=== PATIENT | male | born 1945 | race Caucasian/White ===

== ENCOUNTER 2017-06-10 18:27 | Emergency (ER) | payer OTHER ==
[2017-06-10 18:31] VITALS: BMI 27.6
[2017-06-10] MEDS ORDERED: ASPIRIN 81 MG CHEWTAB PO ONE (18:38)
[2017-06-10] MEDS ORDERED: ASPIRIN 81 MG CHEWTAB ONE (18:39)
[2017-06-10] MEDS ORDERED: NITROSTAT SL ONE ×2 (18:40→18:58)
--- NOTE | 2017-06-10 18:49 | DR.CP ---
HPI - Time Seen Time seen: 18:46 - PCP [facility] - Complaint Chief Complaint Doctor Comments: Patient is complaining of tightness in his chest for the past two weeks getting worst tonight with SOB and problems breathing. States he goes to the [facility] and they put stents in his heart years ago but he does not know how long ago it was. He denies cold or cough, fever or chills or recent trauma. States he was having chest pain and the machine said his blood pressure was really elevated at home and he decided to come to the emergency room. He has not had an aspirin or nitroglycerin today. Chief Complaint:: PT C/O CHEST TIGHTNESS THAT STARTED 2 WEEKS AGO AND ITS WORSE TODAY ".. Self Treatment fo Chief Complaint: BP MEDS AT 600 AND GOODY PM - Reviewed Nurses Notes Review: Yes - Source History Provided: Patient - Mode of Arrival Mode of Arrival: Ambulatory - Timing Onset of Chief Complaint: 05/30/17 Came on: Gradually Pain: Present Now - Duration Duration: Intermittent How lon Duration: Weeks - Location Location of Chest Pain: Chest Chest Pain Radiation Location: None - Context Onset: At rest Cardiac Risk Factors: HTN PE Risk Factors: None History of: Similar pain in the past, Angioplasty Prehospital Care: None - Quality Quality: Squeezing, Crushing - Severity Severity: Moderate - Modifying Factors Worsens: Nothing, Exertion, Coughing Impoves: Nothing, NTG - Associated Signs and Symptoms Associated Signs and Symptoms: Shortness of Breath PMH - PMH Past Medical History: Yes Past Medical History: Coronary Artery Disease, Diabetes, Dyslipidemia, Hypertension Past Surgical History: Yes Surgical History: Angioplasty/Stents, Cholecystectomy, Other - Family History History of Family Medical Conditions: Yes Family Medical History: Diabetes Mellitus, Cancer, [place], Hypertension - Social History Does patient currently use any type of tobacco product: No Have you used tobacco products in the last 12 months: No Type of Tobacco Use: None How many years tobacco product used: 40 Does any household member use tobacco: No Alcohol Use: None Do you use any recreational Drugs:: No Lives With: Family Lives Where: Home - infectious screening In the last 2 months have you had wt loss of >10#?: NO Have you had fever, night sweats or hemotysis?: No Have you traveled outside the country in the last 6 months?: No Isolation: Standard ROS - Review of Systems Constitutional: No Symptoms Reported, Weakness, Loss of Appetite Eyes: No Symptoms Reported ENTM: No Symptoms Reported Respiratoy: No Symptoms Reported, Short of Breath Cardiovascular: Chest Pain. negative: No Symptoms Reported, See HPI, Edema, Palpitations, Syncope, Cyanosis, Skin Mottling, Other Gastrointestinal/Abdominal: No Symptoms Reported. negative: See HPI, Abdominal Pain, Constipation, Diarrhea, Nausea, Vomiting, Food Intolerance, Other Genitourinary: No Symptoms Reported Neurological: No Symptoms Reported Musculoskeletal: No Symptoms Reported Integumentary: No Symptoms Reported Hematologic/Lymphatic: No Symptoms Reported Endocrine: No Symptoms Reported Psychiatric: No Symptoms Reported PE - Vitals Vitals: Pulse Rate [Apical] 58 Pulse Rate 79 Respiratory Rate 20 Blood Pressure [Right Arm] 182/79 Blood Pressure 222/93 O2 Sat by Pulse Oximetry 95 Course - Reevaluation 1st: Improved - Education/Counseling Education/Counseling: Patient, Family Educated On: Treatment, Diagnosis, Prognosis, Needs for Follow Up (Patient states he is not hurting or having any chest pain and is ready to go home) ROR - Labs Reviewed Laboratory Results Reviewed?: Yes (all labs and x-ray results reviewed and discussed with patient) Result Diagrams: 06/10/17 18:45 06/10/17 18:45 Laboratory: WBC 8.5 X10^3/uL (3.6-10.0) 06/10/17 18:45 RBC 4.49 X10^6/uL (4.7-6.0) L 06/10/17 18:45 Hgb 13.0 g/dL (13.5-18.0) L 06/10/17 18:45 Hct 38.3 % (42.0-54.0) L 06/10/17 18:45 MCV 85.3 fL (80.0-100.0) 06/10/17 18:45 MCH 28.9 pg (27.0-34.0) 06/10/17 18:45 MCHC 33.9 g/dL (33.0-35.0) 06/10/17 18:45 RDW 14.8 % (11.6-16.5) 06/10/17 18:45 Plt Count 101 X10^3/uL (150.0-450.0) L 06/10/17 18:45 Plt Count Comment Decreased (ADEQUATE) 06/10/17 18:45 MPV 12.1 fL (7.4-11.0) H 06/10/17 18:45 Neut % 71.4 % (42.0-75.0) 06/10/17 18:45 Lymph % 20.0 % (21.0-51.0) L 06/10/17 18:45 [place] % 5.4 % (0.0-13.0) 06/10/17 18:45 Eos % 2.2 % (0.9-2.9) 06/10/17 18:45 Baso % 1.0 % (0.2-1.0) 06/10/17 18:45 Neut # 6.0 x10^3/uL (2.2-4.8) H 06/10/17 18:45 Lymph # 1.7 X10^3/uL (1.3-2.9) 06/10/17 18:45 [place] # 0.5 x10^3/uL (0.3-0.8) 06/10/17 18:45 Eos # 0.2 x10^3/uL (0.0-0.2) 06/10/17 18:45 Baso # 0.1 X10^3/uL (0.0-0.1) 06/10/17 18:45 Absolute Nucleated RBC 0.1 /100WBC 06/10/17 18:45 Total Counted 100 06/10/17 18:45 Neutrophils % (Manual) 71 % (39-76) 06/10/17 18:45 Lymphocytes % (Manual) 23 % (13-43) 06/10/17 18:45 Monocytes % (Manual) 2 % (4-9) L 06/10/17 18:45 Eosinophils % (Manual) 4 % (0-6) 06/10/17 18:45 Plt Morphology Comment Normal (NORMAL) 06/10/17 18:45 RBC Morphology Normal (NORMAL) 06/10/17 18:45 INR Target Range - 06/10/17 18:45 INR 0.97 (0.8-1.3) 06/10/17 18:45 PTT 29.2 SECONDS (22.9-36.5) 06/10/17 18:45 PTT Comment - 06/10/17 18:45 D-Dimer 591 ng/mL (0-400) H* 06/10/17 18:45 Sodium 143 mmol/L (136-145) 06/10/17 18:45 Corrected Sodium 146 mmol/L (136-145) H 06/10/17 18:45 Potassium 3.7 mmol/L (3.5-5.1) 06/10/17 18:45 Chloride 107 mmol/L (98-107) 06/10/17 18:45 Carbon Dioxide 27.3 mmol/L (21-32) 06/10/17 18:45 BUN 19 mg/dL (7-18) H 06/10/17 18:45 Creatinine 1.10 mg/dL (0.70-1.30) 06/10/17 18:45 Est GFR (MDRD) Af Amer > 60 (>60) 06/10/17 18:45 Est GFR (MDRD) Non-Af > 60 (>60) 06/10/17 18:45 Glucose 214 mg/dL (65-99) H 06/10/17 18:45 Calcium 9.0 mg/dL (8.5-10.1) 06/10/17 18:45 Corrected Calcium TNP 06/10/17 18:45 Total Bilirubin 0.60 mg/dL (0.2-1.0) 06/10/17 18:45 AST 16 Units/L (15-37) 06/10/17 18:45 ALT 28 Units/L (12-78) 06/10/17 18:45 Alkaline Phosphatase 79 Units/L (46-116) 06/10/17 18:45 Creatine Kinase 50 Units/L (39-308) 06/11/17 00:25 CK-MB (CK-2) 1.0 ng/mL (0-4.0) 06/11/17 00:25 CK/CKMB % Calc 2.0 % (<4) 06/11/17 00:25 Troponin I < 0.02 ng/mL (0-1.5) 06/11/17 00:25 Total Protein 7.2 g/dL (6.4-8.2) 06/10/17 18:45 Albumin 3.6 g/dL (3.4-5.0) 06/10/17 18:45 Globulin 3.6 g/dL (2.5-4.5) 06/10/17 18:45 Albumin/Globulin Ratio 1.0 Ratio (1.1-2.1) L 06/10/17 18:45 - XRAY XRAY Interpreted by: Radiologist (CTA: No evidence of pulmonar embolus. Mod paraseptal and centrilobular emphysema w.bronchitis. Cardiomegal. multiple pulmonary nodules) - EKG Rate: 71 [place]: Normal Rhythm: NSR Block: None ST: Nonsp - Diagnosis Discharge Problem: Chest pain, Acute bronchitis, Pulmonary nodules/lesions, multiple, Hyperglycemia, Hypertension, Cardiomegaly - Discharge Plan Disposition: HOME, SELF-CARE Condition: Stable Prescriptions: Levofloxacin [LEVAQUIN TAB 500 MG *] 500 mg PO DAILY #10 tab - Follow ups/Referrals Follow ups/Referrals: [facility],None [Primary Care Provider] - 3 days ALPHONSO LLANOS [STAFF PHYSICIAN] - 3 days - Instructions Instructions: Nonspecific Chest Pain, [id number], Acute Bronchitis, Chronic Obstructive Pulmonary Disease, [id number], Hyperglycemia, Pulmonary Nodule, [id number], Hypertension
[2017-06-10] MEDS: NITROSTAT SL PRN ×3 (18:50→19:10)
[2017-06-10 19:09] LABS: BASOPHILS # (AUTO) 0.1 X10^3/uL (0.0-0.1); EOSINOPHILS # (AUTO) 0.2 x10^3/uL (0.0-0.2); EOSINOPHILS % (AUTO) 2.2 % (0.9-2.9); HEMATOCRIT 38.3 % (42.0-54.0); LYMPHOCYTES # (AUTO) 1.7 X10^3/uL (1.3-2.9); MEAN CORPUSCULAR HEMOGLOBIN 28.9 pg (27.0-34.0); MEAN CORPUSCULAR HGB CONC 33.9 g/dL (33.0-35.0); MEAN CORPUSCULAR VOLUME 85.3 fL (80.0-100.0); MEAN PLATELET VOLUME 12.1 fL (7.4-11.0); MONOCYTES # (AUTO) 0.5 x10^3/uL (0.3-0.8); MONOCYTES % (AUTO) 5.4 % (0.0-13.0); NEUTROPHILS % (AUTO) 71.4 % (42.0-75.0); PLATELET COUNT 101 X10^3/uL (150.0-450.0); RED BLOOD COUNT 4.49 X10^6/uL (4.7-6.0); RED CELL DISTRIBUTION WIDTH 14.8 % (11.6-16.5); WHITE BLOOD COUNT 8.5 X10^3/uL (3.6-10.0)
[2017-06-10 19:22] LABS: ALANINE AMINOTRANSFERASE 28 Units/L (12-78); ALBUMIN 3.6 g/dL (3.4-5.0); ALKALINE PHOSPHATASE 79 Units/L (46-116); ASPARTATE AMINO TRANSFERASE 16 Units/L (15-37); BLOOD UREA NITROGEN 19 mg/dL (7-18); CARBON DIOXIDE 27.3 mmol/L (21-32); CHLORIDE 107 mmol/L (98-107); CKMB % 1.8 % (<4); COR NA(FOR HYPERGLY) 146 mmol/L (136-145); CREATINE KINASE 57 Units/L (39-308); CREATINE KINASE MB < 1.0 ng/mL (0-4.0); GLUCOSE 214 mg/dL (65-99); SODIUM 143 mmol/L (136-145); TOTAL PROTEIN 7.2 g/dL (6.4-8.2); TROPONIN I < 0.02 ng/mL (0-1.5); eGFR BLACK RACES > 60 (>60); eGFR NON BLACK RACES > 60 (>60)
[2017-06-10 19:31] LABS: PLATELET MORPHOLOGY COMMENT NORMAL (NORMAL)
[2017-06-10 19:54] LABS: D DIMER 591 ng/mL (0-400)
--- NOTE | 2017-06-10 20:57 | RAD ---
EXAM: Chest X-ray INDICATION: Chest pain COMPARISION: Prior exam from August 12, 2016 TECHNIQUE: AP, single view FINDINGS: The lungs are clear in the lung volumes are within normal limits. No pleural effusion or pneumothora x. The cardiac silhouette and mediastinum are normal. The regional skeleton is intact. IMPRESSION: Normal Chest X-Ray Reported By:
[2017-06-10] MEDS ORDERED: NS 100 ML IV 100 ML IV ONE (20:58)
[2017-06-10] MEDS ORDERED: TORADOL 30 MG VIAL IVP STA (21:36)
[2017-06-10] MEDS ORDERED: TORADOL 30 MG VIAL ONE (21:37)
--- NOTE | 2017-06-10 22:25 | CT ---
HISTORY: Chest pain. Pain on inspiration.. Study: CTA chest with contrast Comparison: NONE Technique: Multiple axial images of the chest were obtained from the thoracic inlet to the upper abd omen after the administration of IV contrast.. Sagittal and coronal MIP images were reconstructed. Automated exposure control (AEC) was utilized to adjust the MA and/or kV according to patient size. Findings: There are no filling defects within the pulmonary arterial branches to suggest pulmonary emboli. The main pulmonary artery is of normal caliber. The thoracic aorta is of normal caliber. Incidental no te of an aberrant right subclavian artery There are no significantly enlarged axillary, mediastinal, or hilar lymph nodes by CT size criteria. Multiple small nonspecific mediastinal lymph nodes are demonstrated. There is mild multichamber ca rdiomegaly. Three-vessel coronary artery calcifications are present. No pericardial effusion. The central airways are patent. . There is moderate centrilobular and paraseptal emphysema. There i s mild peribronchial thickening of the central airways. There is a subtle focus of ground-glass opac ification within the right upper lobe measuring 5 mm. This is seen on series 5, image 51. There is a noncalcified pulmonary nodule within the right middle lobe which measures 5 mm on series 5, image 8 3 there is a ground-glass nodule right middle lobe measuring 6 mm series 5, image 74. 5 mm nodule wi thin the right middle lobe series 5, image 71. There is a 5 mm noncalcified nodule left upper lobe s eries 5, image 69. Multiple small foci of ground-glass opacities seen bilaterally. Several other sma ller pulmonary nodules are noted bilaterally. No pleural effusion. No pneumothorax. Limited images of the upper abdomen demonstrate no acute abnormality. Examination of the osseous structures demonstrates no acute osseous abnormality. IMPRESSION: 1. No evidence of pulmonary embolus. 2. There is moderate paraseptal and centrilobular emphysema in addition to mild peribronchial inters titial thickening. This is consistent with bronchitis in the appropriate clinical setting. Please no te that very mild interstitial pulmonary edema could have a similar appearance although felt less li hansa. Clinical correlation is required. 3. Multiple bilateral pulmonary nodules are demonstrated as discussed above. Largest nodule measures 6 mm within the right middle lobe. A followup chest CT is recommended in 3-6 months to assess for s tability. 4. Cardiomegaly. 5. Other findings as above.. Reported By:
[2017-06-10] MEDS ORDERED: CATAPRES TAB 0.2 MG PO ONE (22:58)
[2017-06-10] MEDS ORDERED: CATAPRES TAB 0.2 MG ONE (23:00)
[2017-06-10] MEDS ORDERED: LASIX IVP ONE ×2 (23:02→23:09)
[2017-06-11 00:12] VITALS: BP 182/79
[2017-06-11 00:59] LABS: CREATINE KINASE 50 Units/L (39-308); TROPONIN I < 0.02 ng/mL (0-1.5)
== END 2017-06-11 01:28 | disposition home or self-care (01) ==
LOC: ER 18:27
DX: J20.9 Acute bronchitis, unspecified (principal); R07.89 Other chest pain; R91.1 Solitary pulmonary nodule; J98.4 Other disorders of lung; R73.9 Hyperglycemia, unspecified; I10 Essential (primary) hypertension; I51.7 Cardiomegaly
CPT/HCPCS: 36415; 71010; 71275; 80053; 82550; 82553; 84484; 85025; 85378; 85610; 85730; 93005; 93010; 96365; 96374; 96375; 99283; A4222; J1885; J1940

== ENCOUNTER → 2017-08-31 | Outpatient (CLI) | payer OTHER ==
--- NOTE | 2017-08-31 09:38 | RAD ---
Examination: X-rays of the right shoulder. Clinical history: Right shoulder injury 4 months ago, right shoulder pain. Technique: Three views of the right shoulder were obtained. Comparison: None available. Findings: No acute fracture, dislocation, or destructive bony lesion is noted. No arthropathy is appreciated at the right shoulder. Degenerative changes are noted in the visualized portion of the spine. No soft tissue abnormality is noted. Impression: 1. No acute fracture or dislocation. Reported By:
== END ==
LOC: RAD 09:01
PROVIDERS: ATTEND Nurse Practitioner Family
DX: M19.90 Unspecified osteoarthritis, unspecified site (principal)
CPT/HCPCS: 73030

== ENCOUNTER → 2017-12-08 | Outpatient (CLI) | payer OTHER ==
--- NOTE | 2017-12-08 10:15 | RAD ---
Examination: Right shoulder, four views History: Pain Comparison reference 08/31/2017 Findings: Degenerative narrowing of acromioclavicular and glenohumeral joints. No acute fracture or b one destruction or pathologic calcification. Impression: Osteoarthritis, no acute findings. Reported By:
== END ==
LOC: RAD 09:15
PROVIDERS: ATTEND Specialist
DX: M25.511 Pain in right shoulder (principal); M19.011 Primary osteoarthritis, right shoulder
CPT/HCPCS: 73030

== ENCOUNTER → 2018-01-02 | Outpatient (CLI) | payer OTHER ==
[2018-01-02 08:41] LABS: BASOPHILS # (AUTO) 0.1 X10^3/uL (0.0-0.1); BASOPHILS % (AUTO) 1.1 % (0.2-1.0); EOSINOPHILS # (AUTO) 0.3 x10^3/uL (0.0-0.2); EOSINOPHILS % (AUTO) 3.4 % (0.9-2.9); HEMATOCRIT 39.1 % (42.0-54.0); HEMOGLOBIN 13.1 g/dL (13.5-18.0); LYMPHOCYTES # (AUTO) 1.4 X10^3/uL (1.3-2.9); LYMPHOCYTES % (AUTO) 17.1 % (21.0-51.0); MEAN CORPUSCULAR HEMOGLOBIN 28.6 pg (27.0-34.0); MEAN CORPUSCULAR HGB CONC 33.4 g/dL (33.0-35.0); MEAN CORPUSCULAR VOLUME 85.5 fL (80.0-100.0); MONOCYTES # (AUTO) 0.5 x10^3/uL (0.3-0.8); MONOCYTES % (AUTO) 5.7 % (0.0-13.0); NEUTROPHILS # (AUTO) 6.1 x10^3/uL (2.2-4.8); NEUTROPHILS % (AUTO) 72.7 % (42.0-75.0); PLATELET COUNT 124 X10^3/uL (150.0-450.0); RED BLOOD COUNT 4.57 X10^6/uL (4.7-6.0); RED CELL DISTRIBUTION WIDTH 14.8 % (11.6-16.5); WHITE BLOOD COUNT 8.4 X10^3/uL (3.6-10.0)
[2018-01-02 09:01] LABS: ALANINE AMINOTRANSFERASE 34 Units/L (12-78); ALBUMIN 3.6 g/dL (3.4-5.0); ALKALINE PHOSPHATASE 77 Units/L (46-116); ASPARTATE AMINO TRANSFERASE 14 Units/L (15-37); BLOOD UREA NITROGEN 18 mg/dL (7-18); CALCIUM 9.3 mg/dL (8.5-10.1); CHLORIDE 103 mmol/L (98-107); COR NA(FOR HYPERGLY) 141 mmol/L (136-145); CREATININE 1.05 mg/dL (0.70-1.30); SODIUM 140 mmol/L (136-145); TOTAL PROTEIN 7.5 g/dL (6.4-8.2); TSH (3RD GENERATION) 0.966 uIU/mL (0.358-3.74); eGFR BLACK RACES > 60 (>60); eGFR NON BLACK RACES > 60 (>60)
[2018-01-08 06:29] LABS: PSA TOTAL 3.5 ng/mL (0.0-4.0)
== END ==
LOC: LAB 08:07
PROVIDERS: ATTEND Internal Medicine
DX: I12.9 Hypertensive chronic kidney disease with stage 1 through stage 4 chronic kidney disease, or unspecified chronic kidney disease (principal); N18.2 Chronic kidney disease, stage 2 (mild); I25.10 Atherosclerotic heart disease of native coronary artery without angina pectoris; Z95.5 Presence of coronary angioplasty implant and graft; E11.22 Type 2 diabetes mellitus with diabetic chronic kidney disease; E78.00 Pure hypercholesterolemia, unspecified; M54.5 Low back pain; E66.3 Overweight; Z68.27 Body mass index [BMI] 27.0-27.9, adult; Z12.5 Encounter for screening for malignant neoplasm of prostate
CPT/HCPCS: 36415; 80053; 84153; 84154; 84443; 85025

== ENCOUNTER → 2018-03-15 | Outpatient (CLI) | payer OTHER ==
[2018-03-14 22:15] VITALS: BP 130/60
--- NOTE | 2018-03-15 13:20 | RAD ---
Indication: Cough Exam: PA and lateral Comparison: 06/10/2017 Findings: The heart is normal. The pulmonary vessels are normal. The lungs are mildly hyperinflated a nd emphysematous. There is mild pleural thickening and scarring along the right apex which is unchang ed. The bones are intact. No consolidation or effusion is seen. Impression: Stable chronic changes with no acute abnormality seen. Reported By:
== END ==
LOC: RAD 12:45
PROVIDERS: ATTEND Nurse Practitioner Family
DX: R05 Cough (principal); R06.2 Wheezing
CPT/HCPCS: 71046